=== PATIENT | female | born 1955 | race Caucasian/White ===

== ENCOUNTER 2017-08-18 14:21 | Emergency (ER) | payer SELFPAY ==
[~2017-08-18] VITALS: Ht 152.4 cm; Wt 42.4 kg
[2017-08-18 14:26] VITALS: TEMP 37; Ht 152.4 cm; Wt 42.4 kg
[2017-08-18] MEDS ORDERED: SODIUM CHLORIDE 0.9% 1000ML 1,000 ML IV STA (14:43)
[2017-08-18] MEDS ORDERED: SODIUM CHLORIDE 0.9% 1000ML 1,000 ML IV ONE (14:43)
--- NOTE | 2017-08-18 14:46 | EMERGENCY ROOM VISIT NOTE ---
History Report prepared by Maximo: Neptali Shane Under the Supervision of: Dr. Dell Pickens M.D. First contact with patient: 14:32 Chief Complaint: DIZZY Stated Complaint: LEG PAIN DIZZY WEIGHT LOSS History of Present Illness The patient is a 61 year old female who presents to the Emergency Room with complaints of intermittent dizziness beginning a few days ago. The patient's daughter was used to translate the HPI. She notes walking and stress worsens the patient's symptoms. The daughter states the patient just moved here from [place] four days ago. She reports in the airplane, the patient lost consciousness. The daughter notes the patient had a headache and felt dizzy prior to her losing consciousness. She states the patient has lost a gross amount of weight over the past couple of months. She notes the patient has also been experiencing pain below the knee bilaterally. The daughter reports the patient has been under a large amount of stress, and she is a stress induced alcoholic. She notes the patient does not tremor with alcohol withdraw, but she does with cigarette withdraw. The daughter states the patient smokes 10 cigarettes a day. She reports the patient has a history of diabetes, and she is supposed to take medication orally. The daughter notes the patient is stubborn, and she probably is not taking it. She states she also has a history of hypertension. The daughter reports the patient recently had a cataract removed from her left eye. She denies shortness of breath, chest pain, abdominal pain, and headaches. The daughter also denies a history of blood clots and heart disease. Source of History: family (daughter) Onset: few days ago Position: other (global) Quality: other (dizziness) Timing: intermittent Modifying Factors (Worsening): other (walking and stress) Associated Symptoms: + LOC, No headache, No chest pain, No SOB, No abdominal pain Note: Associated symptoms: weight loss, bilateral pain below the knee Review of Systems As above. All other systems reviewed were negative unless otherwise stated in history. At least 10 were reviewed Past Medical & Surgical Medical Problems: (1) Diabetes (2) HTN (hypertension) Old medical records were reviewed. Nurse's notes were reviewed and I agree with. Family History Patient reports no known family medical history. Social History Smoking Status: Current Every Day Smoker Alcohol Use: heavy Marital Status: Current/Historical Medications Scheduled Losartan Potassium (Cozaar), 50 MG PO BID Metformin Ext Rel (Glucophage Ext Rel), 1 TAB PO BID Metformin Hcl (Glucophage), 850 MG PO BID Simvastatin (Zocor), 20 MG PO QPM Thiamine Hcl (Vitamin B-1), 1 TAB PO DAILY [Daforin], 10 DROPS PO DAILY [Diamicron], 1 TAB PO BID Physical Exam Vital Signs Date Time Temp Pulse Resp B/P (MAP) Pulse Ox O2 Delivery O2 Flow Rate FiO2 08/18/17 17:45 90 20 142/91 98 08/18/17 17:10 97 18 145/94 99 Room Air 08/18/17 15:31 100 18 137/99 96 Room Air 08/18/17 15:07 103 08/18/17 15:00 96 Room Air 08/18/17 14:26 37.0 112 18 127/89 97 Room Air Physical Exam General: Non-ill appearing older female in no acute distress. HEENT: Normal cephalic atraumatic. Pupils are equal round and reactive to light. Extraocular movements are intact. Oropharynx is pink with moist mucous membranes. No swelling of the mouth lips or tongue. Neck: Supple with a midline trachea. No meningeal signs or stiffness, no JVD or bruits. No Stridor. Chest: Clear to auscultation bilaterally. No wheezes or rhonchi. No increased work of breathing. Heart: regular rate and rhythm. Abdomen: Soft nontender, nondistended without rebound guarding or rigidity. Extremities: No cyanosis clubbing or edema. No calf tenderness or assymetry Spine/Back. Non tender to palpation. No CVA tenderness Skin: Good turgor without rashes. Neurologic exam: Cranial nerves two through 12 are intact. Motor and sensation are intact and symmetrical throughout. No tremor. Medical Decision & Procedures ER Provider Diagnostic Interpretation: Radiology results as stated below per my review and radiologist interpretation: CT HEAD WITHOUT CONTRAST (CT) CLINICAL HISTORY: dizzy, weight loss COMPARISON STUDY: No previous studies for comparison. TECHNIQUE: Axial CT of the brain is performed from the vertex to the skull base. IV contrast was not administered for this examination. A dose lowering technique was utilized adhering to the principles of ALARA. CT DOSE: 537.48 mGy.cm FINDINGS: No intra or extra-axial mass lesions are visualized. There is no CT evidence of acute cortical infarction. There is no evidence of midline shift. There is no acute hemorrhage. No calvarial fractures are visualized. There are patchy white matter hypodensities likely on a small vessel basis. There is no evidence of pathologic ventricular dilatation. There is mild mucosal thickening within the sphenoid. IMPRESSION: No acute intracranial findings Electronically signed by: Blanco Lo M.D. 08/18/2017 3:26 PM Dictated Date/Time: 08/18/2017 3:25 PM CHEST ONE VIEW PORTABLE HISTORY: 61 years-old Female CHEST PAIN acute atypical chest pain. COMPARISON: None available TECHNIQUE: Portable upright AP view the chest FINDINGS: Patient is slightly side bent to the right. Cardiac silhouette is within normal limits. No pneumothorax, pleural effusion or focal airspace consolidation. There is an ill-defined opacity measuring approximately 1.0 cm of the lateral right lung base. Lung feng otherwise appear clear with a small calcified granuloma projecting over the region of the right upper lobe, 3 mm. The bones are grossly intact. IMPRESSION: 1. No acute cardiopulmonary process. 2. Ill-defined nodular density measuring approximately 1.0 cm in the lateral right lung base may reflect composite density artifact, however a pulmonary nodule may have a similar appearance. This could be correlated with a nonemergent chest CT. The above report was generated using voice recognition software. It may contain grammatical, syntax or spelling errors. Electronically signed by: Jad Lacy M.D. 08/18/2017 3:42 PM Dictated Date/Time: 08/18/2017 3:40 PM Laboratory Results 08/18/17 14:55 Red Blood Count 4.21, Mean Corpuscular Volume 92.4, Mean Corpuscular Hemoglobin 31.4, Mean Corpuscular Hemoglobin Concent 33.9, Mean Platelet Volume 9.9, Neutrophils (%) (Auto) 52.9, Lymphocytes (%) (Auto) 37.4, Monocytes (%) (Auto) 6.6, Eosinophils (%) (Auto) 1.9, Basophils (%) (Auto) 0.9, Neutrophils # (Auto) 3.60, Lymphocytes # (Auto) 2.55, Monocytes # (Auto) 0.45, Eosinophils # (Auto) 0.13, Basophils # (Auto) 0.06 08/18/17 14:55 Test 08/18/17 14:53 08/18/17 14:55 08/18/17 15:23 08/18/17 17:29 Urine Color YELLOW Urine Appearance CLEAR (CLEAR) Urine pH 6.0 (4.5-7.5) Urine Specific [place] 1.038 (1.000-1.030) Urine Protein NEG (NEG) Urine Glucose (UA) 3+ (NEG) Urine Ketones TRACE (NEG) Urine Occult Blood NEG (NEG) Urine Nitrite NEG (NEG) Urine Bilirubin NEG (NEG) Urine Urobilinogen NEG (NEG) Urine Leukocyte Esterase NEG (NEG) White Blood Count 6.81 K/uL (4.8-10.8) Red Blood Count 4.21 M/uL (4.2-5.4) Hemoglobin 13.2 g/dL (12.0-16.0) Hematocrit 38.9 % (37-47) Mean Corpuscular Volume 92.4 fL (80-100) Mean Corpuscular Hemoglobin 31.4 pg (25-34) Mean Corpuscular Hemoglobin Concent 33.9 g/dl (32-36) Platelet Count 244 K/uL (130-400) Mean Platelet Volume 9.9 fL (7.4-10.4) Neutrophils (%) (Auto) 52.9 % Lymphocytes (%) (Auto) 37.4 % Monocytes (%) (Auto) 6.6 % Eosinophils (%) (Auto) 1.9 % Basophils (%) (Auto) 0.9 % Neutrophils # (Auto) 3.60 K/uL (1.4-6.5) Lymphocytes # (Auto) 2.55 K/uL (1.2-3.4) Monocytes # (Auto) 0.45 K/uL (0.11-0.59) Eosinophils # (Auto) 0.13 K/uL (0-0.5) Basophils # (Auto) 0.06 K/uL (0-0.2) RDW Standard Deviation 40.3 fL (36.4-46.3) RDW Coefficient of Variation 11.9 % (11.5-14.5) Immature Granulocyte % (Auto) 0.3 % Immature Granulocyte # (Auto) 0.02 K/uL (0.00-0.02) Anion Gap 9.0 mmol/L (3-11) Est Creatinine Clear Calc Drug Dose 41.7 ml/min Estimated GFR () 74.5 Estimated GFR (Non- 64.3 BUN/Creatinine Ratio 18.4 (10-20) Osmolality 314 mOsm/kg (280-300) Calcium Level 9.3 mg/dl (8.5-10.1) Total Bilirubin 0.4 mg/dl (0.2-1) Direct Bilirubin < 0.1 mg/dl (0-0.2) Aspartate Amino Transf (AST/SGOT) 9 U/L (15-37) Alanine Aminotransferase (ALT/SGPT) 15 U/L (12-78) Alkaline Phosphatase 109 U/L (45-117) Total Creatine Kinase 38 U/L (26-192) Creatine Kinase MB 0.8 ng/ml (0.5-3.6) Creatine Kinase MB Ratio 2.1 (0-3.0) Total Protein 7.4 gm/dl (6.4-8.2) Albumin 3.7 gm/dl (3.4-5.0) Lipase 170 U/L (73-393) Beta-Hydroxybutyric Acid 2.14 mg/dL (0.2-2.81) Thyroid Stimulating Hormone (TSH) 0.779 uIu/ml (0.300-4.500) Bedside D-Dimer 214 ng/mlFEU (0-450) Bedside Troponin I < 0.030 ng/ml (0-0.045) Bedside Glucose 395 mg/dl (70-90) Laboratory studies as stated above per my review. Medications Administered Medications (Trade) Dose Ordered Sig/Magaly Route Start Time Stop Time Status Last Admin Dose Admin Sodium Chloride 1,000 ml @ 999 mls/hr Q1H1M STAT IV 08/18/17 14:43 08/18/17 15:43 DC 08/18/17 15:08 999 MLS/HR Sodium Chloride 1,000 ml @ 150 mls/hr Q6H40M ONCE IV 08/18/17 14:43 08/18/17 18:06 DC 08/18/17 15:43 150 MLS/HR Insulin Human Regular (novoLIN-R U-100 PER UNIT) 6 units NOW STAT IV 08/18/17 15:54 08/18/17 15:55 DC 08/18/17 16:06 6 UNITS Insulin Human Regular (novoLIN-R U-100 PER UNIT) 5 units NOW STAT SC 08/18/17 17:33 08/18/17 17:34 DC 08/18/17 17:41 5 UNITS ECG Indication: syncope Rate (beats per minute): 75 Rhythm: normal sinus Findings: no acute ischemic change, no ectopy, other (No peaked T-waves) Comparison ECG Date: no prior available ED Course 1433: Past medical records reviewed. The patient was evaluated in room B02, and a complete history and physical examination were performed. 1443: Ordered Sodium Chloride 1000 ml @ 150 mls/hr IV Sodium Chloride 1000 ml @ 999 mls/hr IV 1459: I reevaluated the patient, and the nurses are working on blood work. 1554: Ordered Insulin Human Regular 6 units IV 1634: I reevaluated the patient. She does not have a glucometer. She is resting comfortably. 1641: Case management is going to help the patient set up a follow up appointment. 1728: I reevaluated the patient. Her blood sugar has dropped to the low 300s. 1734: Ordered Insulin Human Regular 5 units SC 1735: Upon reevaluation, the patient is resting comfortably. I discussed the results and treatment plan with her and her daughter. They verbalized agreement of the treatment plan. The patient was discharged home. Medical Decision Differentials include, but are not limited to; arrhythmia, anemia, acute coronary syndrome, PE, malignancy, infection, electrolyte metabolic abnormality. This patient comes in as described above. She arrived 4 days ago from [place]. Her daughters worried as she's had weight loss over the last several months. She also had a syncopal episode on airplane after she felt dizzy. She has occasional dizziness now. She does have a history of smoking heavily. She does drink heavily at times but has no history of alcohol withdrawal. She has a lot of stress with one of her children back in [place] been in retirement. She denies any chest pain. On exam she appears in no distress. It sounds like she really has not had much medical follow-up in [place] prior to all this. She apparently does have a diagnosis of diabetes and hypertension but her daughter does not think she takes her medications necessarily. Daughter also says she does not trust the medications from [place]. Her blood sugar was found to be over 600 however she has no evidence suggest DKA. Her osmolality was not significantly high at just over 300. She has nothing to suggest acute coronary syndrome or arrhythmia. CAT scan of her head was unremarkable. She has nothing to suggest PE with old normal d-dimer. I do think or diabetes is causing her symptoms. With the IV 6 units or regular her blood sugar came down to just below 300. We gave her 5 more units regular subcutaneous prior discharge. I'm then have her use metformin 500 mg twice a day. This will replaced her diabetes medicine with the metformin/Glucophage and the Diamicron . These are from [place] and I'm not sure about the purity or affect. I talked to the daughter at length and told her to ensure she's not take both and to start the new US formulation she will likely need to go up on this. Additionally, I wrote her for glucometer. I also did have gotten her an appointment with her case management team working to get her seen on at [facility] locally here. They may need to readjust her meds as well. She was happy the plan and discharged home. She should check her blood sugar frequently and log it. Medication Reconcilliation Current Medication List: was personally reviewed by me Blood Pressure Screening Patient's blood pressure: Normal blood pressure Blood pressure disposition: Did not require urgent referral Impression Primary Impression: Hyperglycemia Additional Impressions: Dizziness Syncope Scribe Attestation The scribe's documentation has been prepared under my direction and personally reviewed by me in its entirety. I confirm that the note above accurately reflects all work, treatment, procedures, and medical decision making performed by me. Departure Information Dispostion Home / Self-Care Prescriptions Metformin Ext Rel (GLUCOPHAGE EXT REL) 500 Mg Tab 1 TAB PO BID for 30 Days, #60 TAB 1 Refill Prov: Dell Pickens M.D. 08/18/17 Referrals No Doctor, Assigned (PCP) Forms HOME CARE DOCUMENTATION FORM, IMPORTANT VISIT INFORMATION [facility] Instructions [facility] Additional Instructions Rest Drink plenty of fluids Use Metformin 500 mg twice a day. Do not take your old medications from [place] (Glucophage and Diamicron) Get a glucometer and check it 3 times a day and log it Keep your appointment on . Return to the ER if worsening symptoms any new problems or concerns. Problem Qualifiers
[2017-08-18 15:00] VITALS: O2SAT 96
[2017-08-18 15:06] LABS: URINE APPEARANCE CLEAR (CLEAR); URINE BILIRUBIN NEG (NEG); URINE COLOR YELLOW; URINE NITRITE NEG (NEG); URINE SPECIFIC GRAVITY 1.038 (1.000-1.030); UROBILINOGEN NEG (NEG)
[2017-08-18 15:07] LABS: MANUAL MICROSCOPIC REQUIRED? NO; REVIEW REQ? NO
[2017-08-18 15:12] LABS: BASO % 0.9 %; BASO ABS # 0.06 K/uL (0-0.2); COMPLETE YES; EOS % 1.9 %; HEMATOCRIT 38.9 % (37-47); IG% 0.3 %; LYMPH % 37.4 %; LYMPH ABS # 2.55 K/uL (1.2-3.4); MEAN CELL VOLUME 92.4 fL (80-100); MEAN CORPUSCULAR HEMOGLOBIN 31.4 pg (25-34); MEAN CORPUSCULAR HGB CONC 33.9 g/dl (32-36); MEAN PLATELET VOLUME 9.9 fL (7.4-10.4); MONO % 6.6 %; NEUT % 52.9 %; PLATELET COUNT 244 K/uL (130-400); RED BLOOD COUNT 4.21 M/uL (4.2-5.4); WHITE BLOOD COUNT 6.81 K/uL (4.8-10.8)
--- NOTE | 2017-08-18 15:27 | DIAGNOSTIC IMAGING REPORT ---
CT HEAD WITHOUT CONTRAST (CT) CLINICAL HISTORY: dizzy, weight loss COMPARISON STUDY: No previous studies for comparison. TECHNIQUE: Axial CT of the brain is performed from the vertex to the skull base. IV contrast was not administered for this examination. A dose lowering technique was utilized adhering to the principles of ALARA. CT DOSE: 537.48 mGy.cm FINDINGS: No intra or extra-axial mass lesions are visualized. There is no CT evidence of acute cortical infarction. There is no evidence of midline shift. There is no acute hemorrhage. No calvarial fractures are visualized. There are patchy white matter hypodensities likely on a small vessel basis. There is no evidence of pathologic ventricular dilatation. There is mild mucosal thickening within the sphenoid. IMPRESSION: No acute intracranial findings Electronically signed by: Blanco Lo M.D. 08/18/2017 3:26 PM Dictated Date/Time: 08/18/2017 3:25 PM
[2017-08-18 15:41] LABS: ALT/SGPT 15 U/L (12-78); AST/SGOT 9 U/L (15-37); BLOOD UREA NITROGEN 18 mg/dl (7-18); BUN/CREATININE RATIO 18.4 (10-20); CALCIUM 9.3 mg/dl (8.5-10.1); CARBON DIOXIDE 26 mmol/L (21-32); CHLORIDE 97 mmol/L (98-107); CREATININE 0.96 mg/dl (0.60-1.20); GLUCOSE 610 mg/dl (70-99); POTASSIUM 4.6 mmol/L (3.5-5.1); SODIUM 131 mmol/L (136-145)
[2017-08-18] MEDS ORDERED: LOSA50TA54 PO (15:41)
[2017-08-18] MEDS ORDERED: DIAMICRON PO (15:41)
[2017-08-18] MEDS ORDERED: THIA50TA3 PO (15:41)
[2017-08-18] MEDS ORDERED: [UNRECOGNIZED DRUG - OTHER] PO (15:41)
[2017-08-18] MEDS ORDERED: METF-383 PO (15:41)
[2017-08-18] MEDS ORDERED: SIMV20TA2 PO (15:41)
[2017-08-18 15:42] LABS: POINT OF CARE TROPONIN I < 0.030 ng/ml (0-0.045)
--- NOTE | 2017-08-18 15:43 | DIAGNOSTIC IMAGING REPORT ---
CHEST ONE VIEW PORTABLE HISTORY: 61 years-old Female CHEST PAIN acute atypical chest pain. COMPARISON: None available TECHNIQUE: Portable upright AP view the chest FINDINGS: Patient is slightly side bent to the right. Cardiac silhouette is within normal limits. No pneumothorax, pleural effusion or focal airspace consolidation. There is an ill-defined opacity measuring approximately 1.0 cm of the lateral right lung base. Lung feng otherwise appear clear with a small calcified granuloma projecting over the region of the right upper lobe, 3 mm. The bones are grossly intact. IMPRESSION: 1. No acute cardiopulmonary process. 2. Ill-defined nodular density measuring approximately 1.0 cm in the lateral right lung base may reflect composite density artifact, however a pulmonary nodule may have a similar appearance. This could be correlated with a nonemergent chest CT. The above report was generated using voice recognition software. It may contain grammatical, syntax or spelling errors. Electronically signed by: Jad Lacy M.D. 08/18/2017 3:42 PM Dictated Date/Time: 08/18/2017 3:40 PM
[2017-08-18] MEDS ORDERED: NovoLIN-R INSULIN PER UNIT CHARGE IV STA (15:54)
[2017-08-18 15:55] LABS: ALKALINE PHOSPHATASE 109 U/L (45-117); BETA-HYDROXYBUTYRATE 2.14 mg/dL (0.2-2.81); CKMB/CK RATIO 2.1 (0-3.0); THYROID STIMULATING HORMONE 0.779 uIu/ml (0.300-4.500)
[2017-08-18] MEDS ORDERED: METF-382 PO (17:32)
[2017-08-18] MEDS ORDERED: NovoLIN-R INSULIN PER UNIT CHARGE SC STA (17:33)
[2017-08-18 17:45] VITALS: BP 142/91; PULSE 90; O2SAT 98
== END 2017-08-18 17:46 | disposition home or self-care (01) ==
LOC: C.EDB 14:24
DX: E11.65 Type 2 diabetes mellitus with hyperglycemia (principal); F10.20 Alcohol dependence, uncomplicated; I10 Essential (primary) hypertension; F17.210 Nicotine dependence, cigarettes, uncomplicated; Z79.899 Other long term (current) drug therapy